=== PATIENT | female | born 1955 | race African-American/Black ===

== ENCOUNTER 2018-01-01 18:16 | Emergency (ER) | payer SELFPAY ==
[2018-01-01 18:50] LABS: Hemoglobin 12.9 g/dL (12.0-16.0); Mean Corpuscular HGB CONC 30.9 g/dL (32.0-36.0); Mean Corpuscular Volume 84.2 fL (78.0-98.0); RBC Distribution Width 13.2 % (11.5-14.5); Red Blood Cell (RBC) Count 4.94 mill/uL (4.20-5.40); White Blood Cell (WBC) Count 7.5 thou/uL (4.8-10.8)
[2018-01-01 19:07] LABS: ALT (SGPT) 9 U/L (8-55); AST (SGOT) 14 U/L (5-34); Alkaline Phosphatase 87 U/L (40-150); Anion Gap 13 mmol/L (10-20); BUN (Urea Nitrogen) 22 mg/dL (9.8-20.1); Bilirubin, Total 0.3 mg/dL (0.2-1.2); Calc. Creatinine Clearance 0 mL/min (70-130); Calcium 9.5 mg/dL (7.8-10.44); Carbon Dioxide 24 mmol/L (23-31); Chloride 105 mmol/L (98-107); Estimated GFR-MDRD 55; Globulin 3.3 g/dL (2.4-3.5); Glucose 107 mg/dL (80-115); Lipase 29 U/L (8-78); Potassium 4.5 mmol/L (3.5-5.1); Protein, Total 7.3 g/dL (6.0-8.3); Sodium 137 mmol/L (136-145)
[2018-01-01 19:10] LABS: Troponin I Less than 0.010 ng/mL (< 0.028)
[2018-01-01 19:24] LABS: Large Platelets SLIGHT; Lymphocytes 85 % (21-51); MDiff Complete? YES; Mean Platelet Volume 12.9 fL (7.4-10.4); Monocytes 5 % (0-10); Neutrophil 10 % (42-75); PLT Morphology Comment Appears Adequate; Platelet Count 153 thou/uL (130-400)
--- NOTE | 2018-01-01 20:56 | RAD ---
AP VIEW CHEST: 01/01/18 HISTORY: Chest pain. AP view chest is obtained on 01/01/18. AP view chest demonstrates what appears to be a fracture involving the left fourth rib of indetermina te age. I cannot determine whether this is an acute fracture or a healed. Correlate with history. No acute intrathoracic abnormality is seen. IMPRESSION: No evidence of acute intrathoracic abnormality seen. there is a left fourth rib fracture of indetermi kavita age. POS: [facility]
[2018-01-01 22:23] LABS: Troponin I Less than 0.010 ng/mL (< 0.028)
== END 2018-01-01 23:19 | disposition home or self-care (01) ==
LOC: ERS 18:16
DX: R07.89 Other chest pain (principal); J45.909 Unspecified asthma, uncomplicated; Z87.891 Personal history of nicotine dependence; Z79.899 Other long term (current) drug therapy; Z79.82 Long term (current) use of aspirin
CPT/HCPCS: 36415; 71045; 80053; 83690; 84484; 85025; 93005

== ENCOUNTER 2018-01-09 15:26 | Emergency (ER) | payer SELFPAY ==
--- NOTE | 2018-01-09 16:54 | RAD ---
RADIOGRAPH CHEST 2 VIEWS: 01/09/18 HISTORY: 62-year-old female with chest pain and chronic bronchitis with acute cough. FINDINGS: There is no air space density, pulmonary edema, pleural effusion, pneumothorax, or cardiomegaly. IMPRESSION: No acute cardiopulmonary findings. jn [] POS: [facility]
[2018-01-09] MEDS ORDERED: Acetaminophen 500 MG TAB ONE ×2 (17:14→17:15)
== END 2018-01-09 17:12 | disposition home or self-care (01) ==
LOC: ERS 15:26
DX: S22.32XA Fracture of one rib, left side, initial encounter for closed fracture (principal); R07.9 Chest pain, unspecified; J45.909 Unspecified asthma, uncomplicated; Z87.891 Personal history of nicotine dependence; Z79.82 Long term (current) use of aspirin; Z79.899 Other long term (current) drug therapy; W17.89XA Other fall from one level to another, initial encounter
CPT/HCPCS: 71046; 94799